=== PATIENT | male | born 1995 | race Caucasian/White ===

== ENCOUNTER 2017-08-05 16:40 | Emergency (ER) | payer BC ==
[~2017-08-05] VITALS: Ht 177.8 cm; Wt 85.2 kg
[2017-08-05 17:53] VITALS: BP 116/70
== END 2017-08-05 17:53 | disposition home or self-care (01) ==
LOC: EME 16:40
DX: R11.0 Nausea (principal); R42 Dizziness and giddiness; R51 Headache; T50.995A Adverse effect of other drugs, medicaments and biological substances, initial encounter
CPT/HCPCS: 99281; 99284